=== PATIENT | female | born 1985 | race Native Hawaiian/Other Pacific Islander ===

== ENCOUNTER 2017-08-07 09:08 | Outpatient (CLI) | payer BC ==
[~2017-08-07] VITALS: Ht 162.6 cm; Wt 100.2 kg
== END 2017-08-07 23:30 | disposition home or self-care (01) ==
LOC: INF 09:08
DX: L03.211 Cellulitis of face (principal)
CPT/HCPCS: 87070; 87077; 87185; 87186; 87205; 96365; 96366; J3370

== ENCOUNTER 2017-08-08 09:58 | Outpatient (CLI) | payer BC ==
[~2017-08-08] VITALS: Ht 162.6 cm; Wt 100.2 kg
== END 2017-08-08 23:34 | disposition home or self-care (01) ==
LOC: INF 09:58
DX: L03.211 Cellulitis of face (principal)
CPT/HCPCS: 96365; 96366; J3370

== ENCOUNTER 2017-08-09 09:59 | Outpatient (CLI) | payer BC ==
[~2017-08-09] VITALS: Ht 162.6 cm; Wt 100.2 kg
== END 2017-08-09 18:56 | disposition home or self-care (01) ==
LOC: INF 09:59
DX: L03.211 Cellulitis of face (principal)
CPT/HCPCS: 80202; 96365; 96366; J3370

== ENCOUNTER 2017-08-14 09:36 | Outpatient (CLI) | payer BC ==
[~2017-08-14] VITALS: Ht 162.6 cm; Wt 100.2 kg
== END 2017-08-14 18:59 | disposition home or self-care (01) ==
LOC: INF 09:36
DX: L03.211 Cellulitis of face (principal)
CPT/HCPCS: 96365; 96366; J3370

== ENCOUNTER 2019-05-04 08:02 | Outpatient (CLI) | payer BC | END 2019-05-04 19:10 | disposition home or self-care (01) | LOC: LABW 08:02 | DX: O20.0 Threatened abortion (principal) | CPT/HCPCS: 36415; 84702 ==

== ENCOUNTER 2021-01-24 16:32 | Emergency (ER) | payer BC ==
[~2021-01-24] VITALS: Ht 162.6 cm; Wt 104.3 kg
[2021-01-24 16:42] VITALS: BP 142/82; TEMP 97
[2021-01-24 16:59] LABS: PLATELET COUNT 188 K/uL (152-353)
[2021-01-24 17:04] LABS: POTASSIUM 3.4 mmol/L (3.6-5.2); SODIUM 140 mmol/L (136-145)
== END 2021-01-24 18:34 | disposition home or self-care (01) ==
LOC: ED 16:32
PROVIDERS: Family Medicine
DX: R07.89 Other chest pain (principal); F41.8 Other specified anxiety disorders; E87.6 Hypokalemia
CPT/HCPCS: 80053; 82550; 84484; 85027; 93005; 99283